=== PATIENT | female | born 1945 | race Caucasian/White ===

== ENCOUNTER 2021-10-07 13:06 | Emergency (ER) | payer OTHER ==
[2021-10-07 14:49] VITALS: BMI 22.3
[2021-10-07] MEDS ORDERED: SOTROVIMAB 500 MG in SODIUM CHLORIDE 100 ML IVPB ONE (15:49)
[2021-10-07 17:12] VITALS: BP 110/68; PULSE 78; TEMP 98.6
== END 2021-10-07 18:27 | disposition home or self-care (01) ==
LOC: JCOVINFU 13:06
DX: U07.1 COVID-19 (principal)
CPT/HCPCS: 99284-25; M0247; Q0247